=== PATIENT | female | born 1985 | race Hispanic/Latino ===

== ENCOUNTER → 2019-12-21 | Outpatient (CLI) | payer MEDICAID ==
[2019-12-21 12:47] LABS: AMYLASE 61 U/L (25-115); LIPASE 155 U/L (114-286)
== END | disposition home or self-care (01) ==
LOC: LAB 11:39
PROVIDERS: ATTEND Internal Medicine Gastroenterology
DX: R11.2 Nausea with vomiting, unspecified (principal); R14.0 Abdominal distension (gaseous)
CPT/HCPCS: 36415; 82150; 83690; 86677